=== PATIENT | male | born 1985 | race African-American/Black ===

== ENCOUNTER 2017-04-30 10:57 | Emergency (ER) | payer OTHER ==
[2017-04-30 11:11] LABS: URINE SOURCE CLEAN CATCH
[2017-04-30 11:16] LABS: URINE APPEARANCE CLEAR; URINE BILIRUBIN NEG (NEG); URINE BLOOD NEG (NEG); URINE COLOR YELLOW; URINE GLUCOSE NEG (NEG); URINE KETONE NEG (NEG); URINE LEUKOCYTE ESTERASE NEG (NEG); URINE NITRATE NEG (NEG); URINE PROTEIN NEG (NEG); URINE SPECIFIC GRAVITY 1.021 (1.003-1.035)
[2017-04-30 11:19] LABS: CULTURE INDICATED? NO
[2017-05-04 22:14] LABS: CHLAMYDIA TRACH Not Detected (Not Detected); N GONOR Not Detected (Not Detected)
== END 2017-04-30 11:55 | disposition home or self-care (01) ==
LOC: CFTX 10:57 → CED 10:57 → CFTX 11:35
PROVIDERS: Physician Assistant
DX: A59.9 Trichomoniasis, unspecified (principal); Z20.2 Contact with and (suspected) exposure to infections with a predominantly sexual mode of transmission
CPT/HCPCS: 81003; 87491; 87591; 96372; 99283; J0696